=== PATIENT | female | born 1985 | race Hispanic/Latino ===

== ENCOUNTER 2016-11-13 08:46 | Observation (INO) | payer OTHER ==
[2016-11-13] MEDS ORDERED: Sodium Chloride 0.9% 1,000 ML IV STA (09:41)
--- NOTE | 2016-11-13 09:53 | ED PDOC ---
HPI: Abdomen Time Seen by Provider: 11/13/16 09:00 Chief Complaint (Nursing): GI Problem Chief Complaint (Provider): GI Problem History Per: Patient History/Exam Limitations: no limitations Onset/Duration Of Symptoms: Hrs Current Symptoms Are (Timing): Still Present Severity: Moderate Quality Of Discomfort: "Pain" Associated Symptoms: Vomiting. denies: Fever, Nausea Exacerbating Factors: None Alleviating Factors: None Additional Complaint(s): Patient is a 31 year old female who presents to ED accompanied by friend for possible food impaction. Patient reports eating beef last night and has had a stuck sensation in her chest since. States she was vomiting last night trying to expel the food but was unsuccessful. States she has not been able to swallow liquids or her saliva since last night. Denies fever, abdominal pain or difficulty breathing. Admits to a history of food impaction in the past, removed by GI at [facility] 2 years ago and diagnosed with a gluten allergy. Past Medical History Reviewed: Historical Data, Nursing Documentation, Vital Signs Vital Signs: Last Vital Signs Temp 97.5 F L 11/13/16 14:35 Pulse 78 11/13/16 14:35 Resp 15 11/13/16 14:35 BP 100/60 11/13/16 14:35 Pulse Ox 98 11/13/16 14:35 - Medical History PMH: No Chronic Diseases - Surgical History Surgical History: No Surg Hx - Family History Family History: States: No Known Family Hx - Living Arrangements Living Arrangements: Alone - Social History Current smoker - smoking cessation education provided: No Alcohol: None Drugs: Cannabis - Home Medications Home Medications: Ambulatory Orders Medication Instructions Recorded No Known Home Med 11/13/16 - Allergies Allergies/Adverse Reactions: Allergies Allergy/AdvReac Type Severity Reaction Status Date / Time Gluten Allergy VOMITING Uncoded 11/13/16 09:20 Review of Systems ROS Statement: Except As Marked, All Systems Reviewed And Found Negative Constitutional: Negative for: Fever, Chills Respiratory: Negative for: Shortness of Breath Gastrointestinal: Positive for: Vomiting, Abdominal Pain. Negative for: Nausea , Diarrhea Musculoskeletal: Negative for: Neck Pain Neurological: Negative for: Weakness, Numbness Physical Exam - Reviewed Nursing Documentation Reviewed: Yes Vital Signs Reviewed: Yes - Physical Exam Appears: Positive for: Non-toxic, Uncomfortable Skin: Positive for: Normal Color, Warm Eye Exam: Positive for: Normal appearance Neck: Positive for: Normal, Painless ROM Cardiovascular/Chest: Positive for: Regular Rate, Rhythm. Negative for: Murmur Respiratory: Positive for: Normal Breath Sounds. Negative for: Stridor, Respiratory Distress Gastrointestinal/Abdominal: Positive for: Normal Exam. Negative for: Tenderness Extremity: Positive for: Normal ROM Neurologic/Psych: Positive for: Alert, Oriented - Laboratory Results Result Diagrams: 11/13/16 10:03 11/13/16 10:03 - ECG O2 Sat by Pulse Oximetry: 97 (RA) Pulse Ox Interpretation: Normal Medical Decision Making Medical Decision Making: Time: 929 Initial impression: abdominal chest pain, Possible food impaction Initial plan: -- CT-abdomen,chest -- CMP -- CBC -- NSF, Pepcid and Protonix Time: [address] Reilly, patients primary GI specialist in [facility] [phone] States that patient had a food impaction 1 year ago, pushed food down with a scope at that time. Requesting that if patient does not have a food impaction at this time to discharge her on a PPI with instructions to follow up with him for a routine scope. Notes that patient was supposed to be taking PPI's but has remained non compliant Time:1120 CT-abdomen/Chest PROCEDURE: CT Abdomen and Pelvis without intravenous contrast HISTORY: rule out food impaction COMPARISON: None. TECHNIQUE: Technique. Contrast Dose: None Radiation dose: Total exam DLP = 372 mGy-cm. This CT exam was performed using one or more of the following dose reduction techniques: Automated exposure control, adjustment of the mA and/or kV according to patient size, and/or use of iterative reconstruction technique. FINDINGS: THORAX: The lungs are clear. There is no mediastinal adenopathy or effusion. There is no pleural effusion. The proximal tracheobronchial tree is patent. The esophagus is unremarkable.. LIVER: Unremarkable. No gross lesion or ductal dilatation. GALLBLADDER AND BILE DUCTS: Unremarkable. PANCREAS: Unremarkable. No gross lesion or ductal dilatation. SPLEEN: Unremarkable. ADRENALS: Unremarkable. No mass. KIDNEYS AND URETERS: Unremarkable. No hydronephrosis. No solid mass. VASCULATURE: Unremarkable. No aortic aneurysm. BOWEL: Unremarkable. No obstruction. No gross mural thickening. APPENDIX: Unremarkable. Normal appendix. PERITONEUM: Unremarkable. No free fluid. No free air. LYMPH NODES: Unremarkable. No enlarged lymph nodes. BLADDER: Unremarkable. REPRODUCTIVE: Unremarkable. BONES: No acute fracture. OTHER FINDINGS: None. IMPRESSION: No evidence of food impaction. Time: 1130 Case discussed with Kelly Moore emergency communications dispatcher, states he will scope patient at 2pm today. Patient to be kept NPO. pt and pts mother at bedside, answered all questions. they are in agreement with plan. Scribe Attestation: Documented by Dang Calderon acting as a scribe for Keshav Feliz MD. Scribe Attestation: All medical record entries made by the Scribe were at my direction and personally dictated by me. I have reviewed the chart and agree that the record accurately reflects my personal performance of the history, physical exam, medical decision making, and the department course for this patient. I have also personally directed, reviewed, and agree with the discharge instructions and disposition. Disposition - Clinical Impression Clinical Impression: Food impaction of esophagus, GERD (gastroesophageal reflux disease) - Patient ED Disposition Is Patient to be Admitted: Yes - Disposition Disposition Time: 15:00 Condition: FAIR
[2016-11-13 10:10] LABS: BASO # 0.1 K/uL (0.0-0.2); BASO % 1.2 % (0.0-2.0); EOS # 0.3 K/uL (0.0-0.7); EOS % 6.1 % (0.0-4.0); HEMATOCRIT 39.7 % (34.0-47.0); LYMPH # 1.7 K/uL (1.0-4.3); LYMPH % 35.5 % (20.0-40.0); MEAN CELL VOLUME 85.6 fl (81.0-99.0); MEAN CORPUSCULAR HEMOGLOBIN 28.7 pg (27.0-31.0); MEAN CORPUSCULAR HGB CONC 33.5 g/dL (33.0-37.0); MEAN PLATELET VOLUME 8.6 fl (7.2-11.7); MONO # 0.3 K/uL (0.0-0.8); MONO % 6.3 % (0.0-10.0); NEUT # 2.5 K/uL (1.8-7.0); NEUT % 50.9 % (50.0-75.0); NRBC % 0.2 % (0.0-0.0); RED CELL DISTRIBUTION WIDTH 13.4 % (11.5-14.5); WHITE BLOOD COUNT 4.9 K/uL (4.8-10.8)
[2016-11-13 10:24] LABS: ALB/GLOB RATIO 1.5 (1.0-2.1); ALKALINE PHOSPHATASE 40 U/L (38-126); ALT/SGPT 23 U/L (9-52); AST/SGOT 33 U/L (14-36); BILIRUBIN,TOTAL 0.7 mg/dl (0.2-1.3); BLOOD UREA NITROGEN 11 mg/dl (7-17); CALCIUM 9.5 mg/dL (8.4-10.2); CARBON DIOXIDE 27 mmol/L (22-30); CHLORIDE 106 mmol/L (98-107); GFR AFRICAN-AMERICAN > 60; GLUCOSE,RANDOM 95 mg/dL (65-105); POTASSIUM 3.9 MMOL/L (3.6-5.0); SODIUM 144 mmol/l (132-148); TOTAL PROTEIN 7.8 G/DL (6.3-8.2)
--- NOTE | 2016-11-13 11:19 | CT ---
PROCEDURE: CT Abdomen and Pelvis without intravenous contrast HISTORY: rule out food impaction COMPARISON: None. TECHNIQUE: Technique. Contrast Dose: None Radiation dose: Total exam DLP = 372 mGy-cm. This CT exam was performed using one or more of the following dose reduction techniques: Automated exposure control, adjustment of the mA and/or kV according to patient size, and/or use of iterative reconstruction technique. FINDINGS: THORAX: The lungs are clear. There is no mediastinal adenopathy or effusion. There is no pleural effusion. The proximal tracheobronchial tree is patent. The esophagus is unremarkable.. LIVER: Unremarkable. No gross lesion or ductal dilatation. GALLBLADDER AND BILE DUCTS: Unremarkable. PANCREAS: Unremarkable. No gross lesion or ductal dilatation. SPLEEN: Unremarkable. ADRENALS: Unremarkable. No mass. KIDNEYS AND URETERS: Unremarkable. No hydronephrosis. No solid mass. VASCULATURE: Unremarkable. No aortic aneurysm. BOWEL: Unremarkable. No obstruction. No gross mural thickening. APPENDIX: Unremarkable. Normal appendix. PERITONEUM: Unremarkable. No free fluid. No free air. LYMPH NODES: Unremarkable. No enlarged lymph nodes. BLADDER: Unremarkable. REPRODUCTIVE: Unremarkable. BONES: No acute fracture. OTHER FINDINGS: None. IMPRESSION: No evidence of food impaction.
[2016-11-13] MEDS ORDERED: Propofol 10 mg/ml Inj (20 ML) ONE (13:10)
[2016-11-13] MEDS ORDERED: Lactated Ringer's 500 ML IV ONE ×2 (13:12→14:05)
--- NOTE | 2016-11-13 14:04 | CP.PCM.CON ---
Past Patient History - Past Social History Smoking Status: Never Smoked - CARDIAC Hx Cardiac Disorders: No - PULMONARY Hx Respiratory Disorders: No - NEUROLOGICAL Hx Neurological Disorder: No - HEENT Hx HEENT Problems: No - RENAL Hx Chronic Kidney Disease: No - ENDOCRINE/METABOLIC Hx Endocrine Disorders: No - HEMATOLOGICAL/ONCOLOGICAL Hx Blood Disorders: No - INTEGUMENTARY Hx Dermatological Problems: No - MUSCULOSKELETAL/RHEUMATOLOGICAL Hx Musculoskeletal Disorders: No - GENITOURINARY/GYNECOLOGICAL Hx Genitourinary Disorders: No - PSYCHIATRIC Hx Emotional Abuse: No Hx Physical Abuse: No - SURGICAL HISTORY Hx Surgeries: No - ANESTHESIA Hx Anesthesia: No Meds Allergies/Adverse Reactions: Allergies Allergy/AdvReac Type Severity Reaction Status Date / Time Gluten Allergy VOMITING Uncoded 11/13/16 09:20 - Medications Medications: Current Medications Sodium Chloride (Sodium Chloride 0.9%) 1,000 mls @ 150 mls/hr IV .Q6H40M STA Stop: 11/13/16 16:20 Last Admin: 11/13/16 09:58 Dose: 150 mls/hr Results - Vital Signs Recent Vital Signs: Last Vital Signs Temp 99.5 F 11/13/16 13:13 Pulse 58 L 11/13/16 13:13 Resp 14 11/13/16 13:13 BP 110/70 11/13/16 13:13 Pulse Ox 97 11/13/16 13:13 - Labs Result Diagrams: 11/13/16 10:03 11/13/16 10:03
[2016-11-13 14:15] VITALS: TEMP 97.5
[2016-11-13 14:38] VITALS: BP 100/60; PULSE 78; RESP 15
--- NOTE | 2016-11-13 14:43 | CP.PCM.CON ---
History of Present Illness - History of Present Illness History of Present Illness: 31 yo female with h/o eosinophilic esophagitis and food impaction in 2013 admitted due to inability to swallow after eating meat. Patient has had GI bleeding in the past and colonoscopy showed polyp. Last upper endoscopy was in 2014. Now has difficlty swallowing and lower chest discomfort. CT wa negative. Review of Systems - Constitutional Constitutional: absent: Chills - EENT Eyes: absent: Blurred Vision Ears: absent: Decreased Hearing Nose/Mouth/Throat: absent: Epistaxis - Cardiovascular Cardiovascular: absent: Chest Pain - Respiratory Respiratory: absent: Cough - Gastrointestinal Gastrointestinal: As Per HPI - Genitourinary Genitourinary: absent: Change in Urinary Stream Past Patient History - Infectious Disease Hx of Infectious Diseases: None - Tetanus Immunizations Tetanus Immunization: Unknown - Past Social History Smoking Status: Never Smoked - CARDIAC Hx Cardiac Disorders: No - PULMONARY Hx Respiratory Disorders: No - NEUROLOGICAL Hx Neurological Disorder: No - HEENT Hx HEENT Problems: No - RENAL Hx Chronic Kidney Disease: No - ENDOCRINE/METABOLIC Hx Endocrine Disorders: No - HEMATOLOGICAL/ONCOLOGICAL Hx Blood Disorders: No - INTEGUMENTARY Hx Dermatological Problems: No - MUSCULOSKELETAL/RHEUMATOLOGICAL Hx Musculoskeletal Disorders: No - GENITOURINARY/GYNECOLOGICAL Hx Genitourinary Disorders: No - PSYCHIATRIC Hx Emotional Abuse: No Hx Physical Abuse: No - SURGICAL HISTORY Hx Surgeries: No - ANESTHESIA Hx Anesthesia: No Meds Allergies/Adverse Reactions: Allergies Allergy/AdvReac Type Severity Reaction Status Date / Time Gluten Allergy VOMITING Uncoded 11/13/16 09:20 - Medications Medications: Current Medications Sodium Chloride (Sodium Chloride 0.9%) 1,000 mls @ 150 mls/hr IV .Q6H40M STA Stop: 11/13/16 16:20 Last Admin: 11/13/16 09:58 Dose: 150 mls/hr Physical Exam - Constitutional Appears: No Acute Distress - Head Exam Head Exam: NORMAL INSPECTION - Eye Exam Eye Exam: EOMI - ENT Exam ENT Exam: Mucous Membranes Moist - Respiratory Exam Respiratory Exam: Clear to Auscultation Bilateral - Cardiovascular Exam Cardiovascular Exam: REGULAR RHYTHM, +S1, +S2 - GI/Abdominal Exam GI & Abdominal Exam: Normal Bowel Sounds, Soft. absent: Tenderness Results - Vital Signs Recent Vital Signs: Last Vital Signs Temp 97.5 F L 11/13/16 14:35 Pulse 78 11/13/16 14:35 Resp 15 11/13/16 14:35 BP 100/60 11/13/16 14:35 Pulse Ox 98 11/13/16 14:35 - Labs Result Diagrams: 11/13/16 10:03 11/13/16 10:03 Assessment & Plan (1) Dysphagia Status: Acute - Assessment and Plan (Free Text) Assessment: Will do upper endoscopy to evaluate for impaction and esophagitis
[2016-11-13 17:11] VITALS: O2SAT 97
== END 2016-11-13 15:08 | disposition home or self-care (01) ==
LOC: H.ER 08:46 → H.EROBSV 11:36 → H.ERHOLD 13:20
PROVIDERS: ADMIT Internal Medicine Gastroenterology; ATTEND Internal Medicine Gastroenterology
DX: K20.9 Esophagitis, unspecified (principal); K21.9 Gastro-esophageal reflux disease without esophagitis; K44.9 Diaphragmatic hernia without obstruction or gangrene; Z91.14 Patient's other noncompliance with medication regimen; R13.10 Dysphagia, unspecified